=== PATIENT | male | born 1950 | race Caucasian/White ===

== ENCOUNTER 2020-12-05 18:57 | Inpatient (IN) | payer MEDICARE, OTHER ==
[~2020-12-05] VITALS: Ht 167.6 cm; Wt 81.6 kg
[~2020-12-05 18:57] MED LIST: HYDRALAZINE HCL25 MG PO; PERCOCET 5-3251 EACH PO; VIBRAMYCIN100 MG PO
[2020-12-05 19:53] LABS: HEMOGLOBIN 16.7 gm/dl (14.0-17.5); RED BLOOD COUNT 5.64 M/UL (4.20-5.50); WHITE BLOOD COUNT 14.3 K/UL (4.5-11.0)
[2020-12-05 20:16] LABS: BUN/CREATININE RATIO 27 (0-10)
[2020-12-06 06:57] LABS: WHITE BLOOD COUNT 12.1 K/UL (4.5-11.0)
[2020-12-06 06:58] LABS: HEMOGLOBIN 14.1 gm/dl (14.0-17.5); RED BLOOD COUNT 4.77 M/UL (4.20-5.50)
[2020-12-06 07:22] LABS: BUN/CREATININE RATIO 26 (0-10)
[2020-12-06] MEDS ORDERED: LISINOPRIL40 MG PO (08:42)
[2020-12-06] MEDS ORDERED: COREG 25MG TAB25 MG PO (08:42)
[2020-12-06] MEDS ORDERED: DULOXETINE HCL60 MG PO (08:43)
[2020-12-06] MEDS ORDERED: LOW DOSE ASPIRI81 MG PO (08:45)
[2020-12-06] MEDS ORDERED: CRESTOR40 MG PO (08:45)
[2020-12-06] MEDS ORDERED: CLARITIN10 M1 PO (08:49)
[2020-12-06] MEDS ORDERED: SKELAXIN TAB 8800 MG PO (08:50)
[2020-12-06] MEDS ORDERED: NOVOLIN 70100 UNIT/1 SQ (09:04)
[2020-12-06 12:21] LABS: BUN/CREATININE RATIO 27 (0-10)
[2020-12-07 05:58] LABS: HEMOGLOBIN 13.2 gm/dl (14.0-17.5); RED BLOOD COUNT 4.51 M/UL (4.20-5.50); WHITE BLOOD COUNT 9.1 K/UL (4.5-11.0)
[2020-12-07 06:19] LABS: BUN/CREATININE RATIO 21 (0-10)
[2020-12-07] MEDS ORDERED: K-TAB ER20 MEQ PO (11:27)
[2020-12-07] MEDS ORDERED: HUMALOG 10100 UNITS/ SC (11:51)
[2020-12-08 05:55] LABS: HEMOGLOBIN 12.8 gm/dl (14.0-17.5); RED BLOOD COUNT 4.3 M/UL (4.20-5.50)
[2020-12-08 06:14] LABS: BUN/CREATININE RATIO 19 (0-10)
[2020-12-09 04:38] LABS: HEMOGLOBIN 12.9 gm/dl (14.0-17.5); RED BLOOD COUNT 4.4 M/UL (4.20-5.50); WHITE BLOOD COUNT 8.1 K/UL (4.5-11.0)
[2020-12-09 05:48] LABS: BUN/CREATININE RATIO 14 (0-10)
[2020-12-11 03:08] LABS: HEMOGLOBIN 13.8 gm/dl (14.0-17.5); RED BLOOD COUNT 4.66 M/UL (4.20-5.50); WHITE BLOOD COUNT 6.8 K/UL (4.5-11.0)
[2020-12-11 03:43] LABS: BUN/CREATININE RATIO 16 (0-10)
[2020-12-12 04:06] LABS: HEMOGLOBIN 13.6 gm/dl (14.0-17.5); RED BLOOD COUNT 4.57 M/UL (4.20-5.50); WHITE BLOOD COUNT 6.6 K/UL (4.5-11.0)
[2020-12-12 04:28] LABS: BUN/CREATININE RATIO 17 (0-10)
== END 2020-12-12 13:49 | DRG 564 ==
LOC: ER1 18:57 → CDU 12-06 02:44 → M/S 12-06 02:44
PROVIDERS: Emergency Medicine; Internal Medicine; ADMIT Internal Medicine
DX: T79.6XXA Traumatic ischemia of muscle, initial encounter (principal); I63.231 Cerebral infarction due to unspecified occlusion or stenosis of right carotid arteries; I69.354 Hemiplegia and hemiparesis following cerebral infarction affecting left non-dominant side; E86.0 Dehydration; I25.10 Atherosclerotic heart disease of native coronary artery without angina pectoris; W01.0XXA Fall on same level from slipping, tripping and stumbling without subsequent striking against object, initial encounter; Y92.009 Unspecified place in unspecified non-institutional (private) residence as the place of occurrence of the external cause; R00.0 Tachycardia, unspecified; Z95.1 Presence of aortocoronary bypass graft; E11.9 Type 2 diabetes mellitus without complications; E78.5 Hyperlipidemia, unspecified; F17.290 Nicotine dependence, other tobacco product, uncomplicated; Z85.89 Personal history of malignant neoplasm of other organs and systems; Z82.49 Family history of ischemic heart disease and other diseases of the circulatory system; M54.9 Dorsalgia, unspecified; R07.81 Pleurodynia; E78.00 Pure hypercholesterolemia, unspecified; Z20.822 Contact with and (suspected) exposure to COVID-19; E87.6 Hypokalemia
CPT/HCPCS: ECHO; 36415; 70450; 70551; 71045; 71250; 72125; 72128; 72131; 80048; 80053; 80061; 81001; 82550; 82553; 82962; 83036; 83605; 83690; 83735; 83874; 83880; 84132; 84484; 85025; 85027; 85610; 85730; 87040; 90471; 92526; 92610; 93005; 93306; 93880; 96374; 97110; 97110-GP-CQ; 97112; 97116-GP-CQ; 97162; 97166; 97530-GP-CQ; 97535; 99285; J0360; J1650; J7030; U0002

== ENCOUNTER → 2021-02-06 | Outpatient (CLI) | payer MEDICARE, OTHER ==
[~2021-02-06] MED LIST changes: +CLARITIN10 M1 PO; +COREG 25MG TAB25 MG PO; +CRESTOR40 MG PO; +CYCLOBENZAPRINE5 MG PO; +DULOXETINE HCL60 MG PO; +HUMALOG 10100 UNITS/ SC; +IBUPROFEN800 MG PO; +K-TAB ER20 MEQ PO; +LISINOPRIL40 MG PO; +LOW DOSE ASPIRI81 MG PO; +NOVOLIN 70100 UNIT/1 SQ; +SKELAXIN TAB 8800 MG PO
== END ==
LOC: CT 13:38
DX: Z01.818 Encounter for other preprocedural examination (principal); I65.23 Occlusion and stenosis of bilateral carotid arteries
CPT/HCPCS: 36415; 82565; 84520

== ENCOUNTER → 2021-02-23 | Outpatient (CLI) | payer MEDICARE, OTHER | LOC: ECHO 10:49 | DX: I25.10 Atherosclerotic heart disease of native coronary artery without angina pectoris (principal); I34.0 Nonrheumatic mitral (valve) insufficiency; I07.1 Rheumatic tricuspid insufficiency; I35.0 Nonrheumatic aortic (valve) stenosis | CPT/HCPCS: ECHO; 93306 ==

== ENCOUNTER 2021-05-31 20:13 | Emergency (ER) | payer MEDICARE, OTHER ==
[~2021-05-31 20:13] MED LIST changes: -CYCLOBENZAPRINE5 MG PO; -IBUPROFEN800 MG PO
[2021-05-31 21:25] LABS: HEMOGLOBIN 15.4 gm/dl (14.0-17.5); RED BLOOD COUNT 5.2 M/UL (4.20-5.50); WHITE BLOOD COUNT 9.9 K/UL (4.5-11.0)
[2021-05-31 21:48] LABS: BUN/CREATININE RATIO 20 (0-10)
[2021-05-31] MEDS ORDERED: CYCLOBENZAPRINE5 MG PO (23:49)
[2021-05-31] MEDS ORDERED: IBUPROFEN800 MG PO (23:49)
== END 2021-06-01 01:00 | disposition home or self-care (01) ==
LOC: ER1 20:13
PROVIDERS: Physician Assistant
DX: M54.16 Radiculopathy, lumbar region (principal); R53.1 Weakness; F17.210 Nicotine dependence, cigarettes, uncomplicated; E11.9 Type 2 diabetes mellitus without complications; I10 Essential (primary) hypertension; E78.5 Hyperlipidemia, unspecified; I25.2 Old myocardial infarction; E03.9 Hypothyroidism, unspecified; Z85.51 Personal history of malignant neoplasm of bladder
CPT/HCPCS: 70450; 71045; 72131; 80053; 82550; 82553; 83874; 83880; 84484; 85025; 93005; 99284

== ENCOUNTER 2021-07-17 12:15 | Emergency (ER) | payer MEDICARE, OTHER ==
[~2021-07-17 12:15] MED LIST changes: +CYCLOBENZAPRINE5 MG PO; +IBUPROFEN800 MG PO
[2021-07-17] MEDS ORDERED: EC-NAPROSYN500 MG PO (15:37)
== END 2021-07-17 15:49 | disposition home or self-care (01) ==
LOC: ER1 12:15
DX: M54.9 Dorsalgia, unspecified (principal); I10 Essential (primary) hypertension; F17.210 Nicotine dependence, cigarettes, uncomplicated; Z79.01 Long term (current) use of anticoagulants; Z95.1 Presence of aortocoronary bypass graft; Z86.73 Personal history of transient ischemic attack (TIA), and cerebral infarction without residual deficits
CPT/HCPCS: 72128; 72131; 96372; 99284; J1885; J2360

== ENCOUNTER 2021-09-29 16:00 | Emergency (ER) | payer MEDICARE, OTHER ==
[~2021-09-29 16:00] MED LIST changes: +EC-NAPROSYN500 MG PO
[2021-09-29 17:17] LABS: HEMOGLOBIN 14.3 gm/dl (14.0-17.5); RED BLOOD COUNT 4.54 M/UL (4.20-5.50); WHITE BLOOD COUNT 12.7 K/UL (4.5-11.0)
== END 2021-09-29 23:15 | disposition short-term general hospital (02) ==
LOC: ER1 16:00
PROVIDERS: Preventive Medicine Occupational Medicine
DX: N49.2 Inflammatory disorders of scrotum (principal); I25.10 Atherosclerotic heart disease of native coronary artery without angina pectoris; E11.9 Type 2 diabetes mellitus without complications; F17.210 Nicotine dependence, cigarettes, uncomplicated; Z20.822 Contact with and (suspected) exposure to COVID-19
CPT/HCPCS: 80053; 82962; 83036; 83605; 83690; 85025; 85652; 86140; 87070; 87205; 96365; 96376; 99285; J1170; J3370; J7030; U0002

== ENCOUNTER 2021-10-25 12:00 | Emergency (ER) | payer MEDICARE, OTHER ==
[2021-10-25] MEDS ORDERED: DOXYCYCLINE HY100 MG PO (13:37)
[2021-10-25] MEDS ORDERED: CEPHALEXIN500 MG PO (13:37)
== END 2021-10-25 14:35 | disposition home or self-care (01) ==
LOC: ER1 12:00
DX: Z48.00 Encounter for change or removal of nonsurgical wound dressing (principal); I25.10 Atherosclerotic heart disease of native coronary artery without angina pectoris; E11.9 Type 2 diabetes mellitus without complications; I10 Essential (primary) hypertension; F17.210 Nicotine dependence, cigarettes, uncomplicated
CPT/HCPCS: 93005; 99283